=== PATIENT | male | born 1960 | race Caucasian/White ===

== ENCOUNTER 2021-07-01 14:10 | Emergency (ER) | payer OTHER ==
[~2021-07-01] VITALS: Ht 182.9 cm; Wt 104.3 kg
[~2021-07-01 14:10] MED LIST: ALPHA LIPOIC A600 M1 PO; Calcium Acetat667 MG PO; FURO20 PO; HYDPAM25 PO; LACT10SY PO; MULVITA PO; NIFE30ER PO; PANT20 PO; PANT40 PO; SODBIC650 PO; SPIR50 PO
[2021-07-01 15:14] LABS: BASOPHILS ABSOLUTE AUTO 0.01 K/mm3 (0.00-0.23); BASOPHILS PERCENT AUTO 0 % (0-2); EOSINOPHILS ABSOLUTE AUTO 0.17 K/mm3 (0.00-0.68); EOSINOPHILS PERCENT AUTO 3 % (0-6); Hemoglobin 9.7 g/dL (13.5-17.5); IMMATURE GRAN ABSOLUTE AUTO 0.04 K/mm3 (0.00-0.10); IMMATURE GRAN PERCENT AUTO 1 % (0-1); LYMPHOCYTES ABSOLUTE AUTO 0.49 K/mm3 (0.84-5.20); LYMPHOCYTES PERCENT AUTO 8 % (21-46); MONOCYTES ABSOLUTE AUTO 0.53 K/mm3 (0.16-1.47); MONOCYTES PERCENT AUTO 8 % (4-13); Mean Corpuscular HGB 27.6 pg (26.0-34.0); Mean Corpuscular HGB Conc 31.3 g/dL (31.5-36.5); Mean Corpuscular Volume 88 fL (80-100); Mean Platelet Volume 9.1 fL (9.1-12.4); NEUTROPHILS ABSOLUTE AUTO 5.06 K/mm3 (1.96-9.15); NEUTROPHILS PERCENT AUTO 80 % (41-73); Platelet Count 186 K/mm3 (150-400); RDW Coefficient Variation 16.5 % (11.7-14.2); RDW Standard Deviation 53.9 fL (35.1-46.3); Red Blood Cell Count 3.52 M/mm3 (4.30-5.90)
[2021-07-01 15:44] LABS: Albumin, Blood 1.6 g/dL (3.4-5.0); Albumin/Globulin Ratio 0.3 (0.8-1.8); Bilirubin, Total 0.4 mg/dL (0.1-1.0); Bun/Creatinine Ratio 8.5 (12.0-20.0); Calcium, Blood 7.8 mg/dL (8.5-10.1); Creatinine, Blood 3.17 mg/dL (0.60-1.20); Globulin, Blood 4.7 g/dL (2.2-4.0); Potassium, Blood 3.9 mmol/L (3.5-5.5); Total Protein, Blood 6.3 g/dL (6.4-8.2)
[2021-07-01 15:50] LABS: International Normalized Ratio 1.07; Prothrombin Time Results 11.2 Sec (9.7-11.5)
== END 2021-07-01 20:16 | disposition home or self-care (01) ==
LOC: ER 14:10
PROVIDERS: Physician Assistant
DX: R18.8 Other ascites (principal); I10 Essential (primary) hypertension; F17.200 Nicotine dependence, unspecified, uncomplicated; Z79.899 Other long term (current) drug therapy
CPT/HCPCS: 36415; 49082; 80053; 82140; 85025; 85610; 96374; 99285-25; P9046

== ENCOUNTER 2021-07-21 12:37 | Day surgery (SDC) | payer OTHER | END 2021-07-21 22:51 | disposition home or self-care (01) | LOC: US 12:37 | DX: K70.31 Alcoholic cirrhosis of liver with ascites (principal) | CPT/HCPCS: 49083 ==

== ENCOUNTER 2021-08-04 14:26 | Day surgery (SDC) | payer OTHER | END 2021-08-04 23:53 | disposition home or self-care (01) | LOC: US 14:26 | DX: K70.31 Alcoholic cirrhosis of liver with ascites (principal) | CPT/HCPCS: 49083 ==

== ENCOUNTER 2021-08-15 13:57 | Emergency (ER) | payer OTHER ==
[~2021-08-15] VITALS: Ht 182.9 cm; Wt 96.6 kg
[2021-08-15 14:40] LABS: BASOPHILS ABSOLUTE AUTO 0.02 K/mm3 (0.00-0.23); BASOPHILS PERCENT AUTO 0 % (0-2); EOSINOPHILS PERCENT AUTO 2 % (0-6); Hematocrit 33.3 % (37.0-53.0); Hemoglobin 10.7 g/dL (13.5-17.5); IMMATURE GRAN ABSOLUTE AUTO 0.05 K/mm3 (0.00-0.10); IMMATURE GRAN PERCENT AUTO 1 % (0-1); LYMPHOCYTES ABSOLUTE AUTO 0.46 K/mm3 (0.84-5.20); LYMPHOCYTES PERCENT AUTO 5 % (21-46); MONOCYTES PERCENT AUTO 7 % (4-13); Mean Corpuscular HGB 27.3 pg (26.0-34.0); Mean Corpuscular HGB Conc 32.1 g/dL (31.5-36.5); Mean Corpuscular Volume 85 fL (80-100); Mean Platelet Volume 9.4 fL (9.1-12.4); NEUTROPHILS ABSOLUTE AUTO 7.69 K/mm3 (1.96-9.15); NEUTROPHILS PERCENT AUTO 85 % (41-73); Platelet Count 188 K/mm3 (150-400); RDW Standard Deviation 49.2 fL (35.1-46.3); Red Blood Cell Count 3.92 M/mm3 (4.30-5.90); White Blood Cell Count 9.02 K/mm3 (4.00-11.30)
[2021-08-15 14:58] LABS: Albumin, Blood 1.8 g/dL (3.4-5.0); Albumin/Globulin Ratio 0.3 (0.8-1.8); Bilirubin, Total 0.5 mg/dL (0.1-1.0); Bun/Creatinine Ratio 11.3 (12.0-20.0); Calcium, Blood 8.4 mg/dL (8.5-10.1); Creatinine, Blood 3.37 mg/dL (0.60-1.20); Globulin, Blood 5.3 g/dL (2.2-4.0); Potassium, Blood 4.9 mmol/L (3.5-5.5); Total Protein, Blood 7.1 g/dL (6.4-8.2)
[2021-08-19] MEDS ORDERED: [UNRECOGNIZED DRUG - OTHER] IV (11:07)
[2021-08-19] MEDS ORDERED: ALDACTONE100 MG PO (11:09)
== END 2021-08-15 16:10 | disposition left against medical advice (07) ==
LOC: ER 13:57
PROVIDERS: Emergency Medicine
DX: Z53.21 Procedure and treatment not carried out due to patient leaving prior to being seen by health care provider (principal)
CPT/HCPCS: 36415; 80053; 85025

== ENCOUNTER 2021-08-18 14:40 | Day surgery (SDC) | payer OTHER ==
[2021-08-19] MEDS ORDERED: [UNRECOGNIZED DRUG - OTHER] IV (11:07)
[2021-08-19] MEDS ORDERED: ALDACTONE100 MG PO (11:09)
== END 2021-08-18 18:11 | disposition home or self-care (01) ==
LOC: US 14:40
DX: K70.31 Alcoholic cirrhosis of liver with ascites (principal)
CPT/HCPCS: 49083; 96365; P9041; P9046

== ENCOUNTER 2021-09-01 13:32 | Day surgery (SDC) | payer OTHER ==
[~2021-09-01 13:32] MED LIST changes: +ALDACTONE100 MG PO; +MECL25 PO; +[UNRECOGNIZED DRUG - OTHER] IV
== END 2021-09-01 17:00 | disposition home or self-care (01) ==
LOC: US 13:32 → ATC 13:32 → US 14:00 → ATC 17:00
DX: K70.31 Alcoholic cirrhosis of liver with ascites (principal)
CPT/HCPCS: 49083; 96365; P9046

== ENCOUNTER 2021-09-15 13:25 | Day surgery (SDC) | payer OTHER | END 2021-09-15 17:07 | disposition home or self-care (01) | LOC: US 13:25 → ATC 13:25 → US 14:00 → ATC 17:07 | DX: K70.31 Alcoholic cirrhosis of liver with ascites (principal) | CPT/HCPCS: 49083; 96365; P9046 ==

== ENCOUNTER 2021-09-22 07:13 | Day surgery (SDC) | payer OTHER ==
[~2021-09-22] VITALS: Ht 182.9 cm; Wt 97.0 kg
--- NOTE | 2021-09-22 08:48 | NUR ---
RN NOTICED PREOP HR RYTHM CHANGES. DR. NAZARIO CONSULTED, 12 LEDE EKG ORDERED AND DONE. DR. RAMOS WITH CONCERNS REGARDING EKG SO PROCEDURE IS CANCELLED FOR FURTHER TESTING. RENAL PANEL ORDERED BY DR. RAMOS. LAB HERE TO DRAW.
--- NOTE | 2021-09-22 08:57 | NUR ---
AFTER CONSULTING WITH CONSUMER INSIGHTS INTERN, DR. RAMOS DECIDED TO PROCEDD WITH PROCEDURE TODAY.
--- NOTE | 2021-09-22 09:14 | NUR ---
INTO SDS VIA WC. History, Chart, Medications and Allergies reviewed before start of procedure. Lungs clear T/O to Auscultation. Patient confirms NPO status and agrees with scheduled surgery. Pre-Op teaching done. Pt verbalizes understanding. Patient States Post-Procedure ride home has been arranged.
--- NOTE | 2021-09-22 09:15 | NUR ---
09/22/21 0915 Ana Rosa Cruz SEE ANESTHESIA RECORD. Bite Block Placed.
--- NOTE | 2021-09-22 10:07 | NUR ---
Patient up to Ambulate independently. Gait steady. Discharge instructions reviewed with patient. Patient verbalizes understanding. Copy given to patient to take home [facility]. Patient States Post-Procedure ride home has been arranged. Discharged via wheelchair to private car for ride home.
[2021-09-22 10:17] LABS: Albumin, Blood 2.3 g/dL (3.4-5.0); Anion Gap 8 mmol/L (6-16); Blood Urea Nitrogen 55 mg/dL (8-24); CO2, Blood 19 mmol/L (21-32); Calcium, Blood 8.2 mg/dL (8.5-10.1); Chloride, Blood 106 mmol/L (98-108); Creatinine, Blood 3.93 mg/dL (0.60-1.20); Glomerular Filtration Rate 16 (60-); Glucose, Blood 92 mg/dL (70-99); Phosphorus, Blood 5.2 mg/dL (2.5-4.9); Potassium, Blood 4.7 mmol/L (3.5-5.5); Sodium, Blood 133 mmol/L (136-145)
== END 2021-09-22 10:07 | disposition home or self-care (01) ==
LOC: ORSCMMR 07:13 → ORD 08:30 → ORSCMMR 08:30
PROVIDERS: Internal Medicine Gastroenterology
PROC: 0DB68ZX Excision of Stomach, Via Natural or Artificial Opening Endoscopic, Diagnostic (ICD-10-PCS; principal; 2021-09-22 08:30)
DX: K74.60 Unspecified cirrhosis of liver (principal); I86.4 Gastric varices; K31.9 Disease of stomach and duodenum, unspecified; K21.9 Gastro-esophageal reflux disease without esophagitis; K29.70 Gastritis, unspecified, without bleeding; I10 Essential (primary) hypertension; F17.210 Nicotine dependence, cigarettes, uncomplicated; Z79.899 Other long term (current) drug therapy
CPT/HCPCS: 36415; 80069; 88305; 88342; 93005; 93010; J2704; J7120

== ENCOUNTER 2021-09-28 13:28 | Day surgery (SDC) | payer OTHER | END 2021-09-28 23:09 | disposition home or self-care (01) | LOC: US 13:28 | DX: K70.31 Alcoholic cirrhosis of liver with ascites (principal) | CPT/HCPCS: 49083 ==

== ENCOUNTER 2021-10-01 13:08 | Emergency (ER) | payer OTHER ==
[~2021-10-01] VITALS: Ht 182.9 cm; Wt 99.8 kg
[2021-10-01 14:16] LABS: BASOPHILS ABSOLUTE AUTO 0.03 K/mm3 (0.00-0.23); BASOPHILS PERCENT AUTO 0 % (0-2); EOSINOPHILS ABSOLUTE AUTO 0.11 K/mm3 (0.00-0.68); EOSINOPHILS PERCENT AUTO 1 % (0-6); Hematocrit 34.7 % (37.0-53.0); Hemoglobin 10.8 g/dL (13.5-17.5); IMMATURE GRAN ABSOLUTE AUTO 0.06 K/mm3 (0.00-0.10); IMMATURE GRAN PERCENT AUTO 1 % (0-1); LYMPHOCYTES ABSOLUTE AUTO 0.71 K/mm3 (0.84-5.20); LYMPHOCYTES PERCENT AUTO 8 % (21-46); MONOCYTES ABSOLUTE AUTO 0.69 K/mm3 (0.16-1.47); MONOCYTES PERCENT AUTO 8 % (4-13); Mean Corpuscular HGB 26.3 pg (26.0-34.0); Mean Corpuscular HGB Conc 31.1 g/dL (31.5-36.5); Mean Corpuscular Volume 85 fL (80-100); Mean Platelet Volume 8.7 fL (9.1-12.4); NEUTROPHILS ABSOLUTE AUTO 7.31 K/mm3 (1.96-9.15); NEUTROPHILS PERCENT AUTO 82 % (41-73); Platelet Count 192 K/mm3 (150-400); RDW Coefficient Variation 17.9 % (11.7-14.2); RDW Standard Deviation 54.4 fL (35.1-46.3); White Blood Cell Count 8.91 K/mm3 (4.00-11.30)
[2021-10-01 14:32] LABS: International Normalized Ratio 1.12; Prothrombin Time Results 11.7 Sec (9.7-11.5)
[2021-10-01 14:38] LABS: Albumin, Blood 2.3 g/dL (3.4-5.0); Albumin/Globulin Ratio 0.4 (0.8-1.8); Bilirubin, Total 0.7 mg/dL (0.1-1.0); Calcium, Blood 8.4 mg/dL (8.5-10.1); Creatinine, Blood 3.7 mg/dL (0.60-1.20); Globulin, Blood 5.3 g/dL (2.2-4.0); Potassium, Blood 5.6 mmol/L (3.5-5.5); Total Protein, Blood 7.6 g/dL (6.4-8.2)
[2021-10-01 18:32] LABS: Automated BF RBC Count 0.005 M/mm3 (0-0); Body Fluid WBC Count 570 /mm3 (0-999); RBC Count, Body Fluid 5000 /mm3 (0-0)
[2021-10-01 18:38] LABS: Appearance, Body Fluid Hazy (Clear); Color, Body Fluid Yellow (None-Yellow)
[2021-10-01] MEDS ORDERED: OXAYDO5 M1 PO (18:50)
[2021-10-01 18:53] LABS: Protein, Body Fluid 2.1 g/dL
[2021-10-01 19:03] LABS: Total Cell Count, Body Fluid 100
[2021-10-03] MEDS ORDERED: ALPHA LIPOIC ACID PO (13:46)
[2021-10-03] MEDS ORDERED: CENTRUM SILVER1 EAC2 PO (13:50)
[2021-10-03] MEDS ORDERED: PROBIOTIC1 EA13 PO (13:53)
== END 2021-10-01 19:44 | disposition home or self-care (01) ==
LOC: ER 13:08
PROVIDERS: Physician Assistant; Student in an Organized Health Care Education/Training Program
DX: R18.8 Other ascites (principal); R63.0 Anorexia; I10 Essential (primary) hypertension; F17.200 Nicotine dependence, unspecified, uncomplicated; Z86.73 Personal history of transient ischemic attack (TIA), and cerebral infarction without residual deficits; Z79.899 Other long term (current) drug therapy
CPT/HCPCS: 36415; 80053; 82140; 84157; 85025; 85610; 85730; 86850; 86900; 86901; 89051; 96374; 99284-25; A9270; J1170

== ENCOUNTER 2021-10-03 14:05 | Day surgery (SDC) | payer OTHER ==
[~2021-10-03 14:05] MED LIST changes: +ALPHA LIPOIC ACID PO; +CENTRUM SILVER1 EAC2 PO; +OXAYDO5 M1 PO; +PROBIOTIC1 EA13 PO
[2021-10-04] MEDS ORDERED: METO25 PO (15:09)
== END 2021-10-03 17:35 | disposition home or self-care (01) ==
LOC: ATC 14:05 → US 14:05 → ATC 17:35 → US 10-13 14:00
DX: K70.31 Alcoholic cirrhosis of liver with ascites (principal)
CPT/HCPCS: 49083; P9046

== ENCOUNTER 2021-10-04 09:11 | Day surgery (SDC) | payer OTHER ==
[~2021-10-04] VITALS: Ht 182.9 cm; Wt 96.0 kg
--- NOTE | 2021-10-04 13:14 | NUR ---
PT ARRIVED BACK TO RECOVERY ROOM IN BED. LACW DPPM SITE SOFT WITH NO HEMATOMA, NO BLEEDING AND INTACT DRESSING WITH ICE BAG IN PLACE AND CALL LIGHT IN REACH.
--- NOTE | 2021-10-04 14:29 | NUR ---
Pt taken to imaging via w/c for 2 view chest x ray. Left chest incision site remains with dressing intact, no bleeding or oozing noted. Pt reports pain to site with movement, Dr. Armas previoulsy to bedside for eval. Order for metoprolol 5 mg IVP upon return from imaging. HR ranging 90-120 at rest.
[2021-10-04] MEDS ORDERED: METO25 PO (15:09)
--- NOTE | 2021-10-04 15:10 | NUR ---
PT BACK FROM IMAGING. MEDICATED WITH LOPRESSOR 2.[address] TRENT, DOSE VERIFIED. HR REMAINS IN 80'S. PT RESTING ON GURNEY WITH EYES CLOSED, LAYING ON RIGHT SIDE, NO ACUTE DISTRESS NOTED. SPOUSE PREVIOUSLY UPDATED ON TIME OF DISCHARGE. INCISION TO LEFT CHEST REMAINS WITH DRESSING INTACT. NO SIGNS OF BLEEDING, OOZING, OR DISCHARGE NOTED. WILL CONTINUE TO MONITOR.
--- NOTE | 2021-10-04 16:31 | NUR ---
PT OUT OF BED WITH SBA, TAKEN TO RESTROOM VIA W/C. IV PREVIOUSLY REMOVED FROM LAC WITH CATH INTACT, PRESSURE DRESSING APPLIED. LEFT ARM PLACED INTO SLING. DRESSING REMAINS INTACT TO LEFT CHEST INCISION SITE WHERE PACEMAKER WAS PLACED TODAY. PT C/O PAIN TO LEFT SHOULDER, DR. TRENT INFORMED, VERBAL ORDER TO USE PRN EXTRA STRENGTH TYLENOL. VERBALIZED UNDERSTANDING AND DISCHARGE PAPERWORK REVIEWED. PAPERWORK PLACED IN FOLDER TO TAKE HOME. NO ACUTE DISTRESS NOTED AT TIME OF DISCHARGE. ENCOURAGED TO FOLLOW UP WITH PROVIDER SCHEDULED.
== END 2021-10-04 16:05 | disposition home or self-care (01) ==
LOC: ECHO 09:11 → MHTC 09:11 → ECHO 10:00 → EDSTATUS 10:00
DX: I44.2 Atrioventricular block, complete (principal); I13.0 Hypertensive heart and chronic kidney disease with heart failure and stage 1 through stage 4 chronic kidney disease, or unspecified chronic kidney disease; N18.4 Chronic kidney disease, stage 4 (severe); I50.32 Chronic diastolic (congestive) heart failure; K21.9 Gastro-esophageal reflux disease without esophagitis; F17.200 Nicotine dependence, unspecified, uncomplicated; Z86.73 Personal history of transient ischemic attack (TIA), and cerebral infarction without residual deficits
CPT/HCPCS: 33208; 71046; 93005; 93010; 99152; 99153; C1785; C1894; C1898; C8929; J0690; J1580; J1644; J2250; J3010; J7030; J7040; Q9957

== ENCOUNTER 2021-10-13 13:15 | Day surgery (SDC) | payer OTHER ==
[~2021-10-13 13:15] MED LIST changes: +METO25 PO
== END 2021-10-13 15:40 | disposition home or self-care (01) ==
LOC: ATC 13:15 → US 13:15 → ATC 15:40
DX: K70.31 Alcoholic cirrhosis of liver with ascites (principal)
CPT/HCPCS: 49083; 96365; P9041

== ENCOUNTER 2021-10-27 13:27 | Day surgery (SDC) | payer OTHER | END 2021-10-27 16:22 | disposition home or self-care (01) | LOC: US 13:27 | DX: R18.8 Other ascites (principal); K73.9 Chronic hepatitis, unspecified; I12.9 Hypertensive chronic kidney disease with stage 1 through stage 4 chronic kidney disease, or unspecified chronic kidney disease; N18.4 Chronic kidney disease, stage 4 (severe); F17.210 Nicotine dependence, cigarettes, uncomplicated | CPT/HCPCS: 49083; 96365; P9041 ==

== ENCOUNTER 2021-11-01 19:21 | Emergency (ER) | payer OTHER ==
[~2021-11-01] VITALS: Ht 180.3 cm; Wt 90.7 kg
[2021-11-01 19:44] LABS: BASOPHILS ABSOLUTE AUTO 0.02 K/mm3 (0.00-0.23); BASOPHILS PERCENT AUTO 0 % (0-2); EOSINOPHILS ABSOLUTE AUTO 0.25 K/mm3 (0.00-0.68); EOSINOPHILS PERCENT AUTO 3 % (0-6); Hematocrit 31.6 % (37.0-53.0); IMMATURE GRAN ABSOLUTE AUTO 0.09 K/mm3 (0.00-0.10); IMMATURE GRAN PERCENT AUTO 1 % (0-1); LYMPHOCYTES ABSOLUTE AUTO 0.78 K/mm3 (0.84-5.20); LYMPHOCYTES PERCENT AUTO 8 % (21-46); MONOCYTES ABSOLUTE AUTO 0.87 K/mm3 (0.16-1.47); MONOCYTES PERCENT AUTO 9 % (4-13); Mean Corpuscular HGB 27.3 pg (26.0-34.0); Mean Corpuscular HGB Conc 31.6 g/dL (31.5-36.5); Mean Corpuscular Volume 86 fL (80-100); Mean Platelet Volume 9.3 fL (9.1-12.4); NEUTROPHILS ABSOLUTE AUTO 7.45 K/mm3 (1.96-9.15); NEUTROPHILS PERCENT AUTO 79 % (41-73); Platelet Count 185 K/mm3 (150-400); RDW Coefficient Variation 18.2 % (11.7-14.2); RDW Standard Deviation 57.4 fL (35.1-46.3); Red Blood Cell Count 3.66 M/mm3 (4.30-5.90); White Blood Cell Count 9.46 K/mm3 (4.00-11.30)
[2021-11-01 20:27] LABS: Albumin/Globulin Ratio 0.4 (0.8-1.8); Bilirubin, Total 0.4 mg/dL (0.1-1.0); Bun/Creatinine Ratio 17.1 (12.0-20.0); Calcium, Blood 8.2 mg/dL (8.5-10.1); Creatinine, Blood 3.34 mg/dL (0.60-1.20); Globulin, Blood 4.9 g/dL (2.2-4.0); Potassium, Blood 5.5 mmol/L (3.5-5.5); Total Protein, Blood 6.9 g/dL (6.4-8.2)
[2021-11-01 20:34] LABS: International Normalized Ratio 1.06; Prothrombin Time Results 11.1 Sec (9.7-11.5)
[2021-11-01 23:00] LABS: Influenza A, PCR NEGATIVE (NEGATIVE); Influenza B, PCR NEGATIVE (NEGATIVE); Resp Syncytial Virus, PCR NEGATIVE (NEGATIVE); SARS-Cov-2 (COVID-19) PCR, MMC NEGATIVE (NEGATIVE)
== END 2021-11-01 22:40 | disposition short-term general hospital (02) ==
LOC: ER 19:21
PROVIDERS: Emergency Medicine
DX: I63.9 Cerebral infarction, unspecified (principal); I10 Essential (primary) hypertension; F17.200 Nicotine dependence, unspecified, uncomplicated; Z79.899 Other long term (current) drug therapy
CPT/HCPCS: 0241U; 51702; 70450; 70496; 70498; 80053; 85025; 85610; 85730; 93005; 93010; 96374; 96375; 99285-25; J3101; Q9967